=== PATIENT | female | born 1990 | race Caucasian/White ===

== ENCOUNTER 2017-03-18 19:18 | Emergency (ER) | payer OTHER ==
[2017-03-18 20:57] LABS: URINE BLOOD (Dip) POC Negative (NEGATIVE); URINE GLUCOSE (Dip) POC Negative (NEGATIVE); URINE KETONES (Dip) POC Negative (NEGATIVE); URINE LEUKOCYTE EST (Dip) POC Negative (NEGATIVE); URINE NITRITE (Dip) POC Negative (NEGATIVE); URINE TOTAL PROTEIN POC Negative (NEGATIVE)
[2017-03-18 20:57] LABS: URINE PH (Dip) POC 5.5 (5.0-8.5)
[2017-03-18] MEDS: CEFTRIAXONE 250 MG INJ IM (21:33)
[2017-03-18] MEDS: LIDOCAINE 1% (MDV) 20 ML INJ SC (21:33)
[2017-03-18] MEDS: AZITHROMYCIN 250 MG TAB PO (21:33)
== END 2017-03-19 00:30 | disposition home or self-care (01) ==
LOC: FTE 03-19 00:30
DX: A56.8 Sexually transmitted chlamydial infection of other sites (principal)
CPT/HCPCS: 81003; 87591; 96372; 99284-25

== ENCOUNTER 2017-06-07 18:16 | Emergency (ER) | payer OTHER ==
[2017-06-07] MEDS: predniSONE 20 MG TAB PO (19:09)
[2017-06-07] MEDS: DIPHENHYDRAMINE 25 MG CAP PO (19:09)
== END 2017-06-07 19:15 | disposition home or self-care (01) ==
LOC: FTE 18:16
DX: J30.9 Allergic rhinitis, unspecified (principal)
CPT/HCPCS: 99283; J7512

== ENCOUNTER 2017-07-12 07:19 | Day surgery (SDC) | payer OTHER ==
[2017-07-12] MEDS ORDERED: CEFAZOLIN 2 GM/50 ML (PMX) 50 ML IVPB (08:00)
[2017-07-12] MEDS ORDERED: LACTATED RINGER'S 1,000 ML IV* (08:00)
[2017-07-12] MEDS ORDERED: FENTAnyl 50 MCG/ML VIAL (09:21)
[2017-07-12] MEDS ORDERED: PROPOFOL 40 ML (09:21)
[2017-07-12] MEDS ORDERED: CEFAZOLIN 1 GM INJ (09:21)
[2017-07-12] MEDS ORDERED: ACETAMINOPHEN 1000MG/100ML IV 100 ML (09:21)
[2017-07-12] MEDS ORDERED: MIDAZOLAM 1 MG/ML 2 ML INJ (09:21)
[2017-07-12] MEDS ORDERED: LIDOCAINE 2% (SDV) 5 ML INJ (09:21)
[2017-07-12] MEDS ORDERED: KETOROLAC 30 MG INJ (09:22)
[2017-07-12] MEDS ORDERED: DEXAMETHASONE 4 MG/ML 1 ML INJ (09:22)
[2017-07-12] MEDS ORDERED: ONDANSETRON 4 MG INJ (09:22)
[2017-07-12] MEDS ORDERED: DIPHENHYDRAMINE 50 MG INJ IV (09:30)
[2017-07-12] MEDS ORDERED: HYDROmorphONE (0.2 MG/ML) 10ML SYG IV (09:30)
[2017-07-12] MEDS ORDERED: ONDANSETRON 4 MG INJ IV (09:30)
[2017-07-12] MEDS ORDERED: MEPERIDINE 25 MG INJ IV (09:30)
[2017-07-12] MEDS ORDERED: FENTAnyl 50 MCG/ML VIAL IV (09:30)
[2017-07-12] MEDS: FENTAnyl 50 MCG/ML VIAL IV (10:44)
== END 2017-07-12 11:50 | disposition home or self-care (01) ==
LOC: SDS 07:19
DX: N84.0 Polyp of corpus uteri (principal)
CPT/HCPCS: 58563; 88305

== ENCOUNTER 2017-07-16 20:16 | Emergency (ER) | payer OTHER | END 2017-07-16 23:46 | disposition home or self-care (01) | LOC: FTE 20:16 | DX: S99.911A Unspecified injury of right ankle, initial encounter (principal); X58.XXXA Exposure to other specified factors, initial encounter; Y92.9 Unspecified place or not applicable | CPT/HCPCS: 99282; Z7502 ==

== ENCOUNTER 2018-10-03 20:32 | Emergency (ER) | payer OTHER | END 2018-10-03 22:55 | disposition home or self-care (01) | LOC: FTE 20:32 | DX: R07.89 Other chest pain (principal) | CPT/HCPCS: 81025; 93005; 99283-25 ==